=== PATIENT | male | born 1990 | race Two or more races ===

== ENCOUNTER → 2019-11-13 | Outpatient (CLI) | payer OTHER ==
[~2019-11-13] MED LIST: OMNIPAQUE 350 MG/ML, 100ML BOTTLE ONE
== END | disposition home or self-care (01) ==
LOC: CFH 13:19
PROVIDERS: ATTEND Pediatrics Pediatric Cardiology
DX: Q23.1 Congenital insufficiency of aortic valve (principal); Q87.40 Marfan syndrome, unspecified; Q25.44 Congenital dilation of aorta
CPT/HCPCS: 71275; Q9967